=== PATIENT | female | born 1960 | race Caucasian/White ===

== ENCOUNTER 2017-07-10 08:54 | Emergency (ER) | payer OTHER | END 2017-07-10 10:24 | disposition home or self-care (01) | LOC: ER 08:54 | DX: J06.9 Acute upper respiratory infection, unspecified (principal); M10.9 Gout, unspecified; K21.9 Gastro-esophageal reflux disease without esophagitis; F17.210 Nicotine dependence, cigarettes, uncomplicated; Z90.89 Acquired absence of other organs; Z90.49 Acquired absence of other specified parts of digestive tract; Z88.5 Allergy status to narcotic agent; Z88.2 Allergy status to sulfonamides; Z88.1 Allergy status to other antibiotic agents ==

== ENCOUNTER 2017-07-20 20:34 | Emergency (ER) | payer OTHER ==
[~2017-07-20] VITALS: Ht 165.1 cm; Wt 92.1 kg
[~2017-07-20 20:34] MED LIST: ALLOPURINOL 10100 M1 PO; ASPIRIN325 PO; CEFTIN 250 MG250 MG PO; FLURBIPROFEN100 MG PO; HYDROCODONE-AP1 EAC6 PO; IBUPROFEN 600600 M1 PO; IBUPROFEN 800800 M1 PO; KEFLEX500 MG PO; MEDROLDOSEPACK; MUCINEX TA600 MG/TA2 PO; NORCO 10-325 T1 EACH PO; NORCO 5-325 TA1 EACH PO; PREDNISONE 20 M20 M1 PO; RISPERDAL2 MG PO; TESSALON PERLE100 MG PO; TRAMADOL 50 MG50 MG PO; TRIAMCINOLONE A15 G1 TP; ULTRAM 50MG TAB50 MG PO; VENTOLIN HFA 1818 GM INH; ZANTAC 150MG T150 M1 PO; ZANTAC 150MG T150 MG PO; ZPAK PO
== END 2017-07-20 21:51 | disposition home or self-care (01) ==
LOC: ER 20:34
DX: G89.18 Other acute postprocedural pain (principal); M10.9 Gout, unspecified; K21.9 Gastro-esophageal reflux disease without esophagitis; F17.210 Nicotine dependence, cigarettes, uncomplicated; Z90.89 Acquired absence of other organs; Z90.49 Acquired absence of other specified parts of digestive tract; Z90.710 Acquired absence of both cervix and uterus; Z88.5 Allergy status to narcotic agent; Z88.2 Allergy status to sulfonamides; Z88.1 Allergy status to other antibiotic agents; Z88.8 Allergy status to other drugs, medicaments and biological substances

== ENCOUNTER → 2017-10-06 | Outpatient (CLI) | payer OTHER | LOC: RAD 10:16 | DX: M79.605 Pain in left leg (principal); R10.2 Pelvic and perineal pain; M51.37 Other intervertebral disc degeneration, lumbosacral region ==

== ENCOUNTER 2017-11-03 17:01 | Emergency (ER) | payer OTHER ==
[~2017-11-03] VITALS: Ht 165.1 cm; Wt 61.7 kg
[~2017-11-03 17:01] MED LIST changes: +KEFLEX500 M1 PO; +PREDNISONE 20 M20 MG PO
[2017-11-03] MEDS ORDERED: VENTOLIN HFA 1818 GM INH (18:33)
[2017-11-03] MEDS ORDERED: TRAMADOL 50 MG50 MG PO (18:33)
[2017-11-03] MEDS ORDERED: ALBUTEROL2.5 MG/31 INH (18:33)
[2017-11-03 18:36] LABS: URINE BILIRUBIN NEGATIVE (Negative); URINE BLOOD TRACE (Negative); URINE COLOR YELLOW; URINE GLUCOSE-RANDOM* NEGATIVE (Negative); URINE KETONES NEGATIVE (Negative); URINE LEUKOCYTES-REFLEX NEGATIVE (Negative); URINE PROTEIN (DIPSTICK) NEGATIVE (Negative); URINE SPECIFIC GRAVITY <= 1.005 (1.005-1.035); URINE UROBILINOGEN 0.2 E.U./dl (0.2-1.0)
== END 2017-11-03 19:06 | disposition home or self-care (01) ==
LOC: ER 17:01
PROVIDERS: Emergency Medicine
DX: J18.9 Pneumonia, unspecified organism (principal); L85.3 Xerosis cutis; R06.00 Dyspnea, unspecified; M54.42 Lumbago with sciatica, left side; M10.9 Gout, unspecified; F17.210 Nicotine dependence, cigarettes, uncomplicated; Z88.8 Allergy status to other drugs, medicaments and biological substances; K21.9 Gastro-esophageal reflux disease without esophagitis; Z90.89 Acquired absence of other organs; Z90.49 Acquired absence of other specified parts of digestive tract; Z88.5 Allergy status to narcotic agent; Z88.2 Allergy status to sulfonamides; Z88.1 Allergy status to other antibiotic agents

== ENCOUNTER 2018-05-03 09:56 | Emergency (ER) | payer OTHER ==
[~2018-05-03] VITALS: Ht 165.1 cm; Wt 65.8 kg
--- NOTE | ~2018-05-03 | EKG ---
[place] [address] [facility] [place] [address] ELECTROCARDIOGRAM REPORT Name: LEXII VAUGHN [id number] Admission: 05/03/18 Attend Phys: Discharge: 05/03/18 Date of : 56 Report #: [id number] THIS REPORT FOR: //name// [facility] ED Test Date: 2018-05-03 Test Time: 10:23:34 Pat Name: LEXII VAUGHN Department: Room: Gender: F Catering Coordinator: WENDY : 1960 Requested By: Gen Ovalle Order Number: [id number] MD: Horace Gupta Measurements Intervals [place] Rate: 55 P: 49 OR: 140 QRS: 63 QRSD: 111 T: 53 QT: 399 QTc: 382 Interpretive Statements Sinus bradycardia Otherwise normal tracing Compared to ECG 10/28/2017 16:44:59 No significant changes Electronically Signed On 05-04-2018 14:07:08 CDT by Horace Gupta [email or web address] <ELECTRONICALLY SIGNED> By: Horace Gupta MD, [facility] 05/04/18 1407 1023 1023 Horace Gupta MD, FACC /EPI
[~2018-05-03 09:56] MED LIST changes: +ALBUTEROL2.5 MG/31 INH
[2018-05-03 10:43] LABS: ABSOLUTE NEUTROPHILS 5.1 thou/uL (1.4-8.2); BASOPHILS 0.4 % (0.0-2.0); EOSINOPHILS 3.3 % (0.0-3.0); HEMATOCRIT 40.8 % (37.0-47.0); LYMPHOCYTES 29.2 % (24.0-44.0); MCH 27.9 pg (26.0-34.0); MCHC 34.3 g/dL (28.0-37.0); MCV 81.3 fL (80.0-100.0); MONOCYTES 6.2 % (1.0-8.0); PLATELET COUNT 270 thou/uL (150-400); POLYS 60.9 % (36.0-66.0); RBC 5.02 mil/uL (4.20-5.00); RDW 15.5 % (10.5-14.5); WBC 8.4 thou/uL (4.0-11.0)
[2018-05-03 11:28] LABS: ANION GAP 7 mmol/L (7-16); BUN 9 mg/dL (7-18); CALCIUM 9.6 mg/dL (8.5-10.1); CHLORIDE 103 mmol/L (98-107); CO2 28 mmol/L (21-32); CREATININE 0.8 mg/dL (0.6-1.0); GLUCOSE 83 mg/dL (74-106); POTASSIUM 4.2 mmol/L (3.5-5.1); SODIUM 138 mmol/L (136-145)
[2018-05-03 11:39] LABS: ALBUMIN 3.6 g/dL (3.4-5.0); SGOT 18 U/L (15-37); SGPT 37 U/L (30-65); TOTAL BILIRUBIN 0.3 mg/dL (<0.1-1.0); TOTAL PROTEIN 7.5 g/dL (6.4-8.2); TROPONIN-I < 0.04 ng/mL (<0.06)
[2018-05-03] MEDS ORDERED: PRILOSEC 20 MG20 MG PO (14:11)
[2018-05-03] MEDS ORDERED: RANITIDINE 150150 M1 PO (14:45)
== END 2018-05-03 14:56 | disposition home or self-care (01) ==
LOC: ER 09:56
PROVIDERS: Emergency Medicine
DX: R07.9 Chest pain, unspecified (principal); M79.606 Pain in leg, unspecified; F17.210 Nicotine dependence, cigarettes, uncomplicated; K21.9 Gastro-esophageal reflux disease without esophagitis; Z90.49 Acquired absence of other specified parts of digestive tract; Z90.89 Acquired absence of other organs; Z88.5 Allergy status to narcotic agent; Z88.2 Allergy status to sulfonamides; Z88.1 Allergy status to other antibiotic agents; Z88.8 Allergy status to other drugs, medicaments and biological substances

== ENCOUNTER 2019-09-25 17:52 | Emergency (ER) | payer OTHER ==
[~2019-09-25] VITALS: Ht 165.1 cm; Wt 90.7 kg
[~2019-09-25 17:52] MED LIST changes: +PRILOSEC 20 MG20 MG PO; +RANITIDINE 150150 M1 PO
[2019-09-25 19:41] LABS: ABSOLUTE NEUTROPHILS 5.2 thou/uL (1.4-8.2); BASOPHILS 0.8 % (0.0-2.0); EOSINOPHILS 5.2 % (0.0-3.0); HEMATOCRIT 38.2 % (37.0-47.0); HEMOGLOBIN 12.9 gm/dL (12.0-15.0); LYMPHOCYTES 27.1 % (24.0-44.0); MCH 27.6 pg (26.0-34.0); MCHC 33.8 g/dL (28.0-37.0); MCV 81.6 fL (80.0-100.0); MONOCYTES 5.9 % (1.0-8.0); PLATELET COUNT 281 thou/uL (150-400); RBC 4.68 mil/uL (4.20-5.00); WBC 8.4 thou/uL (4.0-11.0)
[2019-09-25 19:46] LABS: CALCIUM 9.6 mg/dL (8.5-10.1); CREATININE 0.7 mg/dL (0.6-1.0); POTASSIUM 3.5 mmol/L (3.5-5.1)
[2019-09-25 19:52] LABS: ALBUMIN 3.4 g/dL (3.4-5.0); TOTAL BILIRUBIN 0.3 mg/dL (<0.1-1.0); TOTAL PROTEIN 7.1 g/dL (6.4-8.2)
[2019-09-25 20:10] VITALS: BP 80/53
== END 2019-09-25 20:47 | disposition home or self-care (01) ==
LOC: ER 17:52
PROVIDERS: Physician Assistant
DX: M79.671 Pain in right foot (principal); M10.9 Gout, unspecified; K21.9 Gastro-esophageal reflux disease without esophagitis; E11.9 Type 2 diabetes mellitus without complications; F17.210 Nicotine dependence, cigarettes, uncomplicated; Z90.89 Acquired absence of other organs; Z88.5 Allergy status to narcotic agent; Z88.2 Allergy status to sulfonamides; Z88.6 Allergy status to analgesic agent

== ENCOUNTER 2020-05-04 23:50 | Emergency (ER) | payer OTHER ==
[~2020-05-04] VITALS: Ht 165.1 cm; Wt 77.1 kg
[2020-05-04 23:54] VITALS: BP 100/59
[2020-05-04] MEDS ORDERED: SEROQUEL 50 MG50 M1 PO (23:58)
== END 2020-05-05 00:53 | disposition home or self-care (01) ==
LOC: ER 23:50
DX: R53.1 Weakness (principal); E11.9 Type 2 diabetes mellitus without complications; F41.9 Anxiety disorder, unspecified; K21.9 Gastro-esophageal reflux disease without esophagitis; M10.9 Gout, unspecified; F17.210 Nicotine dependence, cigarettes, uncomplicated; Z90.49 Acquired absence of other specified parts of digestive tract; Z90.89 Acquired absence of other organs; Z98.51 Tubal ligation status; Z79.82 Long term (current) use of aspirin; Z88.2 Allergy status to sulfonamides; Z88.5 Allergy status to narcotic agent; Z88.8 Allergy status to other drugs, medicaments and biological substances